=== PATIENT | male | born 1980 | race Caucasian/White ===

== ENCOUNTER → 2016-09-23 | Outpatient (REF) ==
--- NOTE | 2016-09-23 12:37 | REP ---
LUMBAR SPINE, PARTIAL: 09/23/2016 CLINICAL HISTORY: Back pain. Three views including conned lateral view lumbosacral junction provided. FINDINGS: Pedicles, spinous and transverse processes are unremarkable. There is no scoliosis. Lateral view shows slight loss of lordosis. Sacral ala, foramina, and SI joints intact. Lower thoracic levels and visualized ribs intact. The disc space and vertebral body heights are preserved. There is no compression deformity or focal lesion. No spondylolysis or spondylolisthesis. IMPRESSION: 1. Mild loss of lordosis lumbar spine which may reflect spasm. No compression fracture, malalignment, spondylolysis, or spondylolisthesis. Signed by Jas Walton MD 09/23/2016 01:47 P
== END ==
LOC: M SMT 10:10
PROVIDERS: ATTEND Internal Medicine
DX: Z02.71 Encounter for disability determination (principal)

== ENCOUNTER → 2022-08-24 | Outpatient (CLI) | LOC: M ADAMS 11:55 | PROVIDERS: ATTEND Physician Assistant | DX: M54.50 Low back pain, unspecified (principal); M54.6 Pain in thoracic spine ==

== ENCOUNTER → 2023-04-12 | Outpatient (REF) | payer OTHER ==
[2023-04-12 16:34] LABS: BASO % 0.4 % (0.0-1.0); EOS # 0.1 10^3/uL (0.0-0.5); EOS % 2.1 % (0.0-3.0); HEMOGLOBIN 14.6 g/dl (13.5-17.5); LYMPH % 28.6 % (24.0-44.0); MEAN CORPUSCULAR HEMOGLOBIN 31.8 pg (27.0-33.0); MEAN CORPUSCULAR HGB CONC 34.8 g/dl (32.0-36.5); MEAN CORPUSCULAR VOLUME 91.5 fl (80.0-96.0); MONO # 0.5 10^3/uL (0.0-0.8); MONO % 7.6 % (2.0-8.0); NEUTROPHILS # 4.2 10^3/uL (1.5-8.5); PLATELET COUNT, AUTOMATED 155 10^3/uL (150-450); RED BLOOD COUNT 4.59 10^6/uL (4.30-6.10); WHITE BLOOD COUNT 6.8 10^3/uL (4.0-10.0)
[2023-04-12 16:47] LABS: ALBUMIN 4.4 G/DL (3.2-5.2); ALKALINE PHOSPHATASE 59 U/L (46-116); ALT/SGPT 18 U/L (7.0-40); AST/SGOT 21 U/L (<34); BILIRUBIN,TOTAL 0.5 MG/DL (0.3-1.2); BLOOD UREA NITROGEN 15 MG/DL (9-23); CALCIUM LEVEL 9.1 MG/DL (8.5-10.1); CARBON DIOXIDE LEVEL 28 MMOL/L (20-31); CHLORIDE LEVEL 107 MMOL/L (98-107); CHOLESTEROL LEVEL 163 MG/DL (<200); FREE T4 0.89 NG/DL (0.89-1.76); GLOMERULAR FILTRATION RATE > 60.0 (>60); GLUCOSE, FASTING 71 MG/DL (60-100); HDL CHOLESTEROL 46.5 MG/DL (>40); LDL CHOLESTEROL 102.9 MG/DL (<100); NON-HDL-C 116.5 MG/DL; POTASSIUM SERUM 4.6 MMOL/L (3.5-5.1); SODIUM LEVEL 141 MMOL/L (136-145); THYROID STIMULATING HORMONE 1.796 uIU/ML (0.55-4.78); TOTAL PROTEIN 7.3 G/DL (5.7-8.2); TRIGLYCERIDES LEVEL 68 MG/DL (<150)
[2023-04-12 17:11] LABS: HEMOGLOBIN A1c 4.6 % (4.0-6.0)
== END ==
LOC: M LABDRWAD 15:55
PROVIDERS: ATTEND Physician Assistant
DX: M54.50 Low back pain, unspecified (principal)